=== PATIENT | female | born 1990 | race Caucasian/White ===

== ENCOUNTER 2019-01-19 21:58 | Emergency (ER) | payer OTHER ==
[2019-01-19 22:10] VITALS: BP 115/62; PULSE 73; TEMP 97.9; BMI 19.3
--- NOTE | 2019-01-19 22:13 | PDOC ---
History of Present Illness - General History Source: Patient Exam Limitations: No Limitations - History of Present Illness Initial Comments: 01/19/19 22:21 The patient is a 28 year old female, who presents to the ED complaining of a burn on her right fingers. She notes that she was taking a stein out of the oven when the steam from the oven burned her right hand. She reports that the index and middle finger became erythematous. She reports pain on her index and middle finger, moderate in severity. She denies any other kind of injuries. Denies taking anything for the pain. PAST MEDICAL HISTORY: no significant history PAST SURGICAL HISTORY: no significant history FAMILY HISTORY: no pertinent history SOCIAL HISTORY: Pt lives with family and is employed. MEDICATIONS: reviewed ALLERGIES: As per nursing notes General: No fevers or chills, no weakness, no weight loss HEENT: No change in vision. No sore throat,. No ear pain CardioVascular: No chest pain or shortness of breath Respiratory:No cough, or wheezing. Gastrointestinal: no nausea, vomiting, diarrhea or constipation, No rectal bleeding Genitourinary: No dysuria, hematuria, or frequency Musculoskeletal: No joint or muscle pain or swelling Neurologic: No headache, vertigo, dizziness or loss of consciousness Psychiatric: nor depression Skin: (+) Right hand burn Endocrine: no increased thirst or abnormal weight change Allergic: no skin or latex allergy All other systems reviewed and normal GENERAL: The patient is awake, alert, and fully oriented, in no acute distress. HEAD: Normal with no signs of trauma. EYES: Pupils equal, round and reactive to light, extraocular movements intact, sclera anicteric, conjunctiva clear. EXTREMITIES: Normal range of motion, no edema. NEUROLOGICAL: Normal speech, normal gait. PSYCH: Normal mood, normal affect. SKIN: (+) 1st and 2nd finger mild 1st degree burn dorsum of the fingers. Tiny blister on middle finger between the PIP and DIP <Edwin Campbell - Last Filed: 01/19/19 22:21> - General History Source: Patient Exam Limitations: No Limitations - History of Present Illness Initial Comments: 01/19/19 22:34 A portion of this note was documented by scribe services under my direction. I have reviewed the details of the note, within reason, and agree with the documentation with the following case summary and management plan written by me. Patient treated in the ED. Nursing notes are reviewed and incorporated into the medical decision-making. Vital signs reviewed. Assessment and plan: This 28-year-old female with superficial first-degree mendez of the first and second fingers of her hand. Patient is fingers were dressed and patient discharged home. Patient told to take Tylenol for the pain <Alee Naranjo I - Last Filed: 01/19/19 22:35> - General Chief Complaint: Burn Stated Complaint: LT FINGERS BURN Time Seen by Provider: 01/19/19 22:03 Past History <Edwin Campbell - Last Filed: 01/19/19 22:21> - Past Medical History COPD: No - Immunization History Td Vaccination: Yes - Suicide/Smoking/Psychosocial Hx Smoking Status: No Smoking History: Never smoked Number of Cigarettes Smoked Daily: 0 <Alee Naranjo I - Last Filed: 01/19/19 22:35> - Past Medical History Allergies/Adverse Reactions: Allergies Allergy/AdvReac Type Severity Reaction Status Date / Time No Known Allergies Allergy Verified 09/23/13 15:13 Home Medications: Ambulatory Orders Ibuprofen [Advil -] 400 mg PO ONCE 01/19/19 Trauma Specific PMHX - Complaint Specific PMHX Arthritis: No <Alee Naranjo I - Last Filed: 01/19/19 22:35> *Physical Exam - Vital Signs Last Vital Signs Temp Pulse Resp BP Pulse Ox 97.9 F 73 16 115/62 100 01/19/19 22:05 01/19/19 22:05 01/19/19 22:05 01/19/19 22:05 01/19/19 22:05 <Edwin Campbell - Last Filed: 01/19/19 22:21> - Vital Signs Last Vital Signs Temp Pulse Resp BP Pulse Ox 97.9 F 73 16 115/62 100 01/19/19 22:05 01/19/19 22:05 01/19/19 22:05 01/19/19 22:05 01/19/19 22:05 <Alee Naranjo I - Last Filed: 01/19/19 22:35> Moderate Sedation - Procedure Monitoring Vital Signs: Procedure Monitoring Vital Signs Temperature 97.9 F 01/19/19 22:05 Pulse Rate 73 01/19/19 22:05 Respiratory Rate 16 01/19/19 22:05 Blood Pressure 115/62 01/19/19 22:05 O2 Sat by Pulse Oximetry (%) 100 01/19/19 22:05 <Edwin Campbell - Last Filed: 01/19/19 22:21> - Procedure Monitoring Vital Signs: Procedure Monitoring Vital Signs Temperature 97.9 F 01/19/19 22:05 Pulse Rate 73 01/19/19 22:05 Respiratory Rate 16 01/19/19 22:05 Blood Pressure 115/62 01/19/19 22:05 O2 Sat by Pulse Oximetry (%) 100 01/19/19 22:05 <Alee Naranjo I - Last Filed: 01/19/19 22:35> *DC/Admit/Observation/Transfer - Attestations Scribe Attestion: 01/19/19 22:21 Documentation prepared by Edwin Campbell, acting as medical records tech for Alee Naranjo MD <Edwin Campbell - Last Filed: 01/19/19 22:21> <Alee Naranjo I - Last Filed: 01/19/19 22:35> Diagnosis at time of Disposition: First degree burn of finger Qualifiers: Encounter type: initial encounter Laterality: right Qualified Code(s): T23.121A - Burn of first degree of single right finger (nail) except thumb, initial encounter - Discharge Dispostion Disposition: HOME Condition at time of disposition: Stable - Referrals Referrals: Babatunde Lawson [Primary Care Provider] - - Patient Instructions Additional Instructions: White the antibiotic cream off your finger once a day reapply some more cream and a dressing as needed. The mendez should heal without any scarring or difficulty as they are primarily first-degree which is similar to a sunburn. Return to the emergency department immediately with ANY new, persistent or worsening symptoms. Continue any medications as previously prescribed by your physician. You should follow up with your primary doctor as soon as possible regarding today's emergency department visit. . Please make sure your doctor reviews the results of your emergency evaluation. Thank you for coming to the Emergency Department today for your care. It was a pleasure to see you today. Please note that your evaluation is INCOMPLETE until you follow-up with your doctor. - Post Discharge Activity
[2019-01-19] MEDS ORDERED: SILVER SULFADIAZINE 1% TOP CREAM 50 GM JAR TP ONE (22:22)
== END 2019-01-19 22:37 | disposition home or self-care (01) ==
LOC: FER 21:58
PROC: 2W2JX4Z Dressing of Right Finger using Bandage (ICD-10-PCS; principal; 2019-01-19)
DX: T23.121A Burn of first degree of single right finger (nail) except thumb, initial encounter (principal); X15.8XXA Contact with other hot household appliances, initial encounter; Y93.G3 Activity, cooking and baking; Y92.89 Other specified places as the place of occurrence of the external cause
CPT/HCPCS: 99282-25

== ENCOUNTER 2019-05-27 17:31 | Emergency (ER) | payer OTHER ==
--- NOTE | 2019-05-27 17:33 | PDOC ---
History of Present Illness - General Chief Complaint: Pain Stated Complaint: left arm numb,neck pain,loose stools,abd pain Time Seen by Provider: 05/27/19 17:33 - History of Present Illness Initial Comments: 05/27/19 17:59 HPI: 28 y/o F presenting with hx of ovarian cyst presenting with 2 days of sharp left lower quadrant abdominal pain with radiation to the left flank and to the right lower quadrant. Pain started all of a sudden and is not associated with PO intake. Initially it was 9/10 and felt stabbing but now its improved 5-6/10. No alleviating factors have been attempted, but she reports worsening pain with walking and motion. She also reports nausea but no emesis. She also reports loose stools since yesterday. Patient recently returned from [place]; she did report some GI issues while there including distention and discomfort. Patient also reports left neck pain associated with radiation to the sternum and back paraspinally with numbness on the left arm that started 2 weeks ago. She initially thought she slept the wrong way, but discomfort has persisted. She has difficulty with FROM of the neck. Denies any stress, anxiety, panic disorder, recent heavy lifting, athletic activities. Patient denies NGUYEN, vision change, palpitations, cough, wheezing, F,C, CP, SOB, urinary complaints, hematuria, constipation, lightheadedness, weakness. PMHx: as noted above ROS: as noted SHx: Denies Etoh, IVDA, tobacco use; with at bedside; no contraceptive use; LMP 1 week ago with normal flow Allergies: NKDA Past History - Past Medical History Allergies/Adverse Reactions: Allergies Allergy/AdvReac Type Severity Reaction Status Date / Time No Known Allergies Allergy Verified 05/27/19 17:33 Home Medications: Ambulatory Orders Ibuprofen [Advil -] 400 mg PO ONCE 01/19/19 COPD: No - Immunization History Td Vaccination: Yes - Suicide/Smoking/Psychosocial Hx Smoking Status: No Smoking History: Never smoked Number of Cigarettes Smoked Daily: 0 Review of Systems - Review of Systems Comments:: 05/27/19 18:30 GENERAL/CONSTITUTIONAL: No fever or chills. No weakness. HEAD, EYES, EARS, NOSE AND THROAT: No change in vision. No ear pain or discharge. No sore throat. CARDIOVASCULAR: No chest pain or shortness of breath RESPIRATORY: No cough, wheezing, or hemoptysis. GASTROINTESTINAL: + nausea, diarrhea, abd pain; no emesis, constipation. GENITOURINARY: No dysuria, frequency, or change in urination. MUSCULOSKELETAL: + muscle pain, neck pain, back pain SKIN: No rash NEUROLOGIC: No headache, vertigo, loss of consciousness, or change in strength/ sensation. ENDOCRINE: No increased thirst. No abnormal weight change HEMATOLOGIC/LYMPHATIC: No anemia, easy bleeding, or history of blood clots. ALLERGIC/IMMUNOLOGIC: No hives or skin allergy. *Physical Exam - Physical Exam Comments: 05/27/19 18:31 GENERAL: Awake, alert, and fully oriented, in no acute distress HEAD: No signs of trauma, normocephalic, atraumatic EYES: PERRLA, EOMI, sclera anicteric, conjunctiva clear ENT: Auricles normal inspection, hearing grossly normal, nares patent, oropharynx clear without exudates. Moist mucosa NECK: left SCM ttp with muscle spasm palpated LUNGS: No distress, speaks full sentences, clear to auscultation bilaterally HEART: Regular rate and rhythm, normal S1 and S2, no murmurs, rubs or gallops, peripheral pulses normal and equal bilaterally. ABDOMEN: Soft, tender to palpation in LLQ with guarding, no rebound tenderness. negative rosvings, negative mcburneys, negative murphys. no cva tenderness EXTREMITIES : Normal inspection, Normal range of motion, no edema. No clubbing or cyanosis. NEUROLOGICAL: Cranial nerves II through XII grossly intact. Normal speech, normal gait, no focal sensorimotor deficits SKIN: Warm, Dry, normal turgor, no rashes or lesions noted GENITOURINARY: Nml appearing external genitalia, with absent lesions. Vaginal vault without blood; normal cervical discharge present. Cervical os closed with no abrasions. Neg CMT on BM. Neg adenexal ttp, or mass palpated. Medical Decision Making - Medical Decision Making 05/27/19 18:53 28 y/o F presenting with hx of ovarian cyst here with 2 days of sharp left lower quadrant abdominal pain with radiation to the left flank and to the right lower quadrant associated with nausea. PE was significant for TTP in LLQ with guarding. DDx includes UTI, ectopic, ruptured ovarian cyst, ovarian torsion, viral GE/colitis. Diagnosis less likely to be torsion due clinical presentation -will send UA, Upreg -will perform pelvic exam with GC swab 05/27/19 18:54 pelvic exam was benign with no CMT, bleeding, foul odor, or abnormal discharge 05/27/19 19:29 UA negative ruling out UTI Upreg negative ruling out preg/ectopic Abdominal pain possibly due to ruptured ovarian cys vs colitis -plan to DC with instructions to followup with PCP and ibuprofen 600mg q6hr *DC/Admit/Observation/Transfer Diagnosis at time of Disposition: Ovarian cyst rupture - Discharge Dispostion Disposition: HOME Condition at time of disposition: Stable - Referrals - Patient Instructions - Post Discharge Activity
[2019-05-27 18:05] VITALS: BP 118/65; PULSE 71; TEMP 98.2; BMI 19.3
[2019-05-27 18:57] LABS: EPITHELIAL CELLS FEW /hpf
--- NOTE | 2019-05-27 19:04 | PDOC ---
Documentation entered by Sharonda Hwoard SCRIBE, acting as scribe for Power Ferrer MD. Power Huynh MD: This documentation has been prepared by the Anita wheat Mackenzie, SCRIBE, under my direction and personally reviewed by me in its entirety. I confirm that the documentation accurately reflects all work , treatment, procedures, and medical decision making performed by me. Attending Attestation - Resident Resident Name: DiegoRush - ED Attending Attestation I have performed the following: I have examined & evaluated the patient, The case was reviewed & discussed with the resident, I agree w/resident's findings & plan - HPI HPI: The patient is a 28 year old female, with a significant PMH of ovarian cysts ( several years ago), who presents to the emergency department with 2 days of intermittent sharp left lower quadrant pain radiating to her left flank and her right lower quadrant. Patient describes the pain as initially a 9/10 in severity and is now a 5/10 in severity with no intervention from the patient. Patient states the pain is worsened by ambulation and alleviated by laying down. Patient notes symptoms of nausea and 5 episodes of loose stool since the onset of her symptoms. Patient also reports returning from the [place] 1 month ago where she and her partner experienced some GI issues however those subsided upon their return home. Patient also notes as of 2 weeks ago she has had constant chest tightness and a pain in her left shoulder/trap which radiates as tingling down her left arm. The patient denies shortness of breath, headache and dizziness. Denies fever, chills, vomiting, and constipation. Denies dysuria, frequency, urgency and hematuria. Allergies: NKDA Past surgical history: None reported Social history: Denies alcohol, tobacco, and drug use. Does not use oral contraception. 05/27/19 18:53 - Physicial Exam PE: GENERAL: Well developed, well nourished. Awake and alert. No acute distress. HEENT: Normocephalic, atraumatic. PERRLA, EOMI. No conjunctival pallor. Sclera are non- icteric. Moist mucous membranes. Oropharynx is clear. NECK: Supple. Full ROM. No JVD. Carotid pulses 2+ and symmetric, without bruits. No thyromegaly. No lymphadenopathy. CARDIOVASCULAR: Regular rate and rhythm. No murmurs, rubs, or gallops. Distal pulses are 2+ and symmetric. PULMONARY: No evidence of respiratory distress. Lungs clear to auscultation bilaterally. No wheezing, rales or rhonchi. ABDOMINAL: (+)Mild to moderate tenderness to deep palpation at the LLQ and the pelvic area bilaterally. No other localized tenderness. Soft. Non-distended. No rebound or guarding. No organomegaly. Normoactive bowel sounds. MUSCULOSKELETAL Normal range of motion at all joints. No bony deformities or tenderness. No CVA tenderness. EXTREMITIES: No cyanosis. No clubbing. No edema. No calf tenderness. SKIN: Warm and dry. Normal capillary refill. No rashes. No jaundice. NEUROLOGICAL: Alert, awake, appropriate. Cranial nerves 2-12 intact. No deficits to light touch and temperature in face, upper extremities and lower extremities. No motor deficits in the in face, upper extremities and lower extremities. Normoreflexic in the upper and lower extremities. Normal speech. Toes are down- going bilaterally. Gait is normal without ataxia. 05/27/19 18:53 - Medical Decision Making 05/27/19 18:54 Assessment: The patient's symptoms and physical findings are most suggestive of ruptured ovarian cyst. The pain was sudden, and is gradually subsiding. She is midcycle. Other possibilities but much less likely include UTI, , ectopic, gastroenteritis/colitis, or ovarian torsion, although the physical findings are not consistent with torsion Plan: Pelvic exam reveals a slightly enlarged left ovary but it is nontender to palpation. Abdominal exam is consistent with mittelschmerz and peritoneal irritation, but no peritonitis.
== END 2019-05-27 20:04 | disposition home or self-care (01) ==
LOC: FER 17:31
DX: N83.299 Other ovarian cyst, unspecified side (principal)
CPT/HCPCS: 36415; 81003; 81015; 84703; 87491; 87591; 99283-25